=== PATIENT | female | born 1990 | race Caucasian/White ===

== ENCOUNTER 2018-06-22 06:56 | Inpatient (IN) | payer OTHER ==
[~2018-06-22] VITALS: Ht 160 cm; Wt 70.5 kg
[2018-06-22] MEDS ORDERED: LACTATED RINGERS 1,000 ML IV SCH ×3 (07:07→09:41)
[2018-06-22] MEDS ORDERED: OXYTOCIN 30U/ 0.9% NaCL 500ML 500 ML IV SCH (07:07)
[2018-06-22] MEDS ORDERED: PLEASE ENTER ALLERGIES MC SCH (07:30)
[2018-06-22] MEDS ORDERED: SODIUM CITRATE/CITRIC ACID 30 ML UDC PO ONE (07:30)
[2018-06-22] MEDS ORDERED: METOCLOPRAMIDE 5 MG/ML, 2ML IV ONE (07:30)
[2018-06-22] MEDS ORDERED: PLEASE ENTER HEIGHT AND WEIGHT MC SCH (07:30)
[2018-06-22] MEDS ORDERED: LACTATED RINGERS 1,000 ML IVBOLUS ONE (07:30)
[2018-06-22] MEDS ORDERED: NEWBORN KIT ONE (07:31)
[2018-06-22 07:33] LABS: BASOPHILS # (AUTO) 0.02 x10^3/uL (0-0.1); BASOPHILS % (AUTO) 0 % (0-1); EOSINOPHILS # (AUTO) 0.04 x10^3/uL (0-0.4); EOSINOPHILS % (AUTO) 1 % (1-7); LYMPHOCYTES # (AUTO) 1.32 x10^3/uL (1-3.4); LYMPHOCYTES % (AUTO) 18 % (22-44); MD NO; MEAN CORPUSCULAR HEMOGLOBIN 29.5 pg (27.0-34.8); MEAN CORPUSCULAR HGB CONC 33.8 g/dL (32.4-35.8); MEAN CORPUSCULAR VOLUME 87.3 fL (80-100); MEAN PLATELET VOLUME 6.3 fL (7.4-10.4); MONOCYTES # (AUTO) 0.58 x10^3/uL (0.2-0.8); MONOCYTES % (AUTO) 8 % (2-9); NEUTROPHILS # (AUTO) 5.45 x10^3/uL (1.8-6.8); NEUTROPHILS % (AUTO) 74 % (42-75); PLATELET COUNT 235 x10^3/uL (130-400); RED BLOOD COUNT 4.13 x10^6/uL (3.82-5.3); RED CELL DISTRIBUTION WIDTH 15.9 % (9.6-15.2)
[2018-06-22 07:43] VITALS: BP 125/74
[2018-06-22] MEDS ORDERED: FENTANYL PF 100 MCG/2ML ONE (09:03)
[2018-06-22] MEDS ORDERED: KETOROLAC 30 MG/1 ML ONE (09:03)
[2018-06-22] MEDS ORDERED: CEFAZOLIN 1,000 MG ONE (09:03)
[2018-06-22] MEDS ORDERED: OXYTOCIN 10 UNITS/ML, 1ML ONE (09:03)
[2018-06-22] MEDS ORDERED: SODIUM CITRATE/CITRIC ACID 30 ML UDC ONE (09:31)
[2018-06-22] MEDS ORDERED: OXYTOCIN 30U/ 0.9% NaCL 500ML 500 ML ONE (09:31)
[2018-06-22] MEDS ORDERED: METOCLOPRAMIDE 5 MG/ML, 2ML ONE (09:31)
[2018-06-22] MEDS ORDERED: PHENYLEPHRINE 10 MG/ML ONE (09:38)
[2018-06-22] MEDS: OXYTOCIN 30U/ 0.9% NaCL 500ML 500 ML IV SCH ×2 (09:41→19:41)
[2018-06-22] MEDS ORDERED: MISOPROSTOL 200 MCG TABLET PR PRN (10:00)
[2018-06-22] MEDS ORDERED: MEASLES,MUMPS&RUBELLA VACC/PF 0.5 ML SQ-VACC PRN (10:00)
[2018-06-22] MEDS ORDERED: OXYcodone/APAP 5/325MG TABLET PO PRN (10:00)
[2018-06-22] MEDS ORDERED: RHOGAM FROM BLOOD BANK 1 NOTE EA IM/IV ONE (10:00)
[2018-06-22] MEDS ORDERED: DIPH,PERTUSS(ACELL),TET VAC/PF NC IM-VACC PRN (10:00)
[2018-06-22] MEDS ORDERED: ONDANSETRON 2MG/ML, 2ML IV PRN ×2 (10:00→11:00)
[2018-06-22] MEDS ORDERED: morphine SULFATE 10 MG/ML, 1ML IVPush PRN (10:00)
[2018-06-22] MEDS ORDERED: OXYcodone IR 5MG TABLET PO PRN (10:00)
[2018-06-22] MEDS ORDERED: SIMETHICONE 80 MG CHEW TAB PO PRN (10:00)
[2018-06-22] MEDS ORDERED: EPHEDRINE 50 MG/ML, 1ML ONE (10:30)
[2018-06-22] MEDS ORDERED: MORPHINE SULFATE 4 MG/ML, 1ML IVPush PRN (11:00)
[2018-06-22] MEDS ORDERED: DIPHENHYDRAMINE 50 MG/ML, 1ML IVPush PRN (11:00)
[2018-06-22] MEDS ORDERED: EPHEDRINE 50 MG/ML, 1ML IVPush PRN (11:00)
[2018-06-22] MEDS ORDERED: FENTANYL PF 100 MCG/2ML IV PRN (11:00)
[2018-06-22] MEDS ORDERED: OXYcodone 5 MG/5 ML ORAL.SOL UDC PO PRN (11:00)
[2018-06-22] MEDS ORDERED: PROMETHAZINE 25 MG/ML, 1ML IM PRN (11:00)
[2018-06-22] MEDS: LACTATED RINGERS 1,000 ML IV SCH ×2 (12:24→19:41)
[2018-06-22 12:50] VITALS: BP 111/70
[2018-06-22 16:15] VITALS: BP 108/57
[2018-06-22] MEDS: KETOROLAC 30 MG/1 ML IV SCH ×2 (16:32→22:48)
[2018-06-22 18:49] LABS: MEAN CORPUSCULAR HEMOGLOBIN 30.2 pg (27.0-34.8); MEAN CORPUSCULAR VOLUME 86.3 fL (80-100); MEAN PLATELET VOLUME 6.4 fL (7.4-10.4); PLATELET COUNT 195 x10^3/uL (130-400); RED BLOOD COUNT 3.66 x10^6/uL (3.82-5.3); RED CELL DISTRIBUTION WIDTH 15.5 % (9.6-15.2)
[2018-06-22 19:02] LABS: MD YES
[2018-06-22 19:19] LABS: BAND#(MANUAL) 0.24 x10^3/uL; BANDS%(MANUAL) 2 % (0-7); LYMPH#(MANUAL) 1.42 x10^3/uL (1-3.4); LYMPHS% (MANUAL) 12 % (22-44); MONOS#(MANUAL) 0.71 x10^3/uL (0.3-2.7); MONOS% (MANUAL) 6 % (2-9); SEG#(MANUAL) 9.44 x10^3/uL (1.8-6.8); SEGS% (MANUAL) 80 % (42-75)
[2018-06-22 19:20] LABS: <PLATELET ESTIMATE> ADEQUATE; <PLT MORPHOLOGY> NORMAL PLT MORPH; <RBC MORPHOLOGY> NORMAL
[2018-06-22 19:45] VITALS: BP 112/63
[2018-06-22] MEDS: DOCUSATE 100 MG CAPSULE PO PRN (22:48)
[2018-06-23 00:10] VITALS: BP 104/70
[2018-06-23 03:42] VITALS: BP 104/70
[2018-06-23] MEDS: KETOROLAC 30 MG/1 ML IV SCH ×3 (04:26→17:24)
[2018-06-23] MEDS: OXYTOCIN 30U/ 0.9% NaCL 500ML 500 ML IV SCH ×2 (05:41→15:41)
[2018-06-23] MEDS: LACTATED RINGERS 1,000 ML IV SCH ×2 (05:41→15:41)
[2018-06-23 07:35] VITALS: BP 97/65
[2018-06-23] MEDS: DOCUSATE 100 MG CAPSULE PO PRN (08:01)
[2018-06-23] MEDS ORDERED: PRENATAL VIT/IRON/FA 1 EACH TABLET PO SCH (09:00)
[2018-06-23 19:52] VITALS: BP 111/77
[2018-06-24] MEDS: KETOROLAC 30 MG/1 ML IV SCH ×2 (00:09→05:33)
[2018-06-24] MEDS: DOCUSATE 100 MG CAPSULE PO PRN (00:09)
[2018-06-24] MEDS: OXYTOCIN 30U/ 0.9% NaCL 500ML 500 ML IV SCH (01:41)
[2018-06-24] MEDS: LACTATED RINGERS 1,000 ML IV SCH (01:41)
[2018-06-24 07:05] VITALS: BP 111/74
[2018-06-24] MEDS ORDERED: IBUPROFEN 600 MG TABLET PO PRN (10:00)
[2018-06-24] MEDS ORDERED: OXYC-302 PO (13:27)
[2018-06-24] MEDS ORDERED: IBUP-1222 PO (13:28)
== END 2018-06-24 14:15 | disposition home or self-care (01) | DRG 766 ==
LOC: LDIP 06:56 → 2NW 12:52
PROVIDERS: ADMIT Obstetrics & Gynecology Gynecology; ATTEND Obstetrics & Gynecology Gynecology
PROC: 10D00Z1 Extraction of Products of Conception, Low, Open Approach (ICD-10-PCS; principal; 2018-06-22)
PROC: 3E0334Z Introduction of Serum, Toxoid and Vaccine into Peripheral Vein, Percutaneous Approach (ICD-10-PCS; 2018-06-22)
DX: O34.211 Maternal care for low transverse scar from previous cesarean delivery (principal); Z37.0 Single live birth; O99.52 Diseases of the respiratory system complicating childbirth; J45.909 Unspecified asthma, uncomplicated; O99.824 Streptococcus B carrier state complicating childbirth; Z3A.39 39 weeks gestation of pregnancy; Z67.41 Type O blood, Rh negative; Z23 Encounter for immunization
CPT/HCPCS: 36415; J2790; 82803; 85025; 85461; 86850; 86900; G0378; J0690; J1885; J3010; J2370; J2590; J2765; J7120